=== PATIENT | male | born 1970 | race Caucasian/White ===

== ENCOUNTER 2018-06-27 10:55 | Inpatient (IN) ==
[2018-06-27] MEDS ORDERED: Famotidine 20 MG/2 ML VIAL IVP ONE (11:59)
[2018-06-27] MEDS ORDERED: Acetaminophen IV 1,000 MG/100 ML INFUS..BTL IVPB ONE (12:00)
[2018-06-27] MEDS ORDERED: Pregabalin 75 MG CAPSULE PO ONE (12:00)
[2018-06-27] MEDS ORDERED: Albuterol 2.5 MG/3 ML NEBULIZER IH ONE (12:08)
[2018-06-27] MEDS ORDERED: CeFAZolin Syr 2,000MG/20 ML 2,000 MG/20 ML SYRINGE IVPB ONE (12:08)
[2018-06-27] MEDS: Ringers Solution, Lactated 1,000 ML IVC SCH ×2 (12:30→17:08)
--- NOTE | 2018-06-27 12:31 | Anesthesia Evaluation PreOp ---
Date of Encounter: 06/27/18 Time of Encounter: 12:30 - Past History Planned Operation: Rt THR Cardiac History: Hyperlipidemia Pulmonary History: Smoker OUTSOLE SKIVER History: Seizures Other Medical History: Other (Bipolar) Anesthesia History: No Prior Anesthetic Complications Alcohol Use: none Drug use: none Medications and Allergies Allergy/AdvReac Type Severity Reaction Status Date / Time sulfamethoxazole Allergy See Verified 06/17/18 10:42 [From Bactrim] Comments tramadol Allergy See Verified 06/17/18 10:42 Comments trimethoprim [From Bactrim] Allergy See Verified 06/17/18 10:42 Comments - Meds/Allergy Pre-op Review Medications Reviewed: Yes Allergies Reviewed: Yes Beta Blockers on Current Med List: No Anesthesia Results - Labs Laboratory Tests 06/17/18 06/17/18 11:48 11:48 Hgb 13.0 Hct 39.9 Plt Count 232 Sodium 138 Potassium 4.1 BUN 9 Creatinine 0.82 Anesthesia Exam O2 Sat Height 1.68 m Weight 80.286 kg O2 Sat by Pulse Oximetry 96 Vital Signs Temp Pulse Resp BP Pulse Ox 98.1 F 62 18 108/73 96 06/27/18 11:27 06/27/18 11:27 06/27/18 11:27 06/27/18 11:27 06/27/18 11:27 Height: 5'7 Weight: 177 lbs NPO (# of Hours): MN Pain Scale: 0 - HEENT Pupil (Motor): Pupils equal, EOMI Mallampati: II Teeth: Missing Oral Opening: Greater than 3 - OUTSOLE SKIVER LOC: Oriented OUTSOLE SKIVER Motor: Normal RUE, Normal LUE, Normal RLE, Normal LLE, Normal Face OUTSOLE SKIVER Sensory: Normal: RUE, LUE, RLE, LLE, Face - Cardiac Rhythm: Regular Murmur: None JVD: No Carotid Bruit: No - Pulmonary Breath Sounds: bilateral Clear Respiratory Effort: Symmetrical Anesthesia Assess/Plan ASA Score: 2 Level of consciousness: Cooperative, Oriented, Tranquil Anesthetic Plan: General Reason for No Neuroaxial/Regional Block: Patient refusal Monitoring Plan: Standard Monitors Recovery Plan: PACU (Discussed GA versus SAB, patient wants GA, agrees to proceed)
[2018-06-27] MEDS ORDERED: Dexamethasone 4 MG/ML VIAL IVP ONE (12:33)
[2018-06-27] MEDS ORDERED: Ondansetron 4 MG/2 ML VIAL IVP ONE (12:33)
[2018-06-27] MEDS ORDERED: *HR* OxyCODONE Immed Rel 5 MG TABLET PO PRN (12:33)
--- NOTE | 2018-06-27 12:57 | History & Physical Report ---
Date of Encounter: 06/27/18 Time of Encounter: 12:57 24 Hour HP Update - Instructions Instructions: If the History and Physical is less than 30 days old and was completed prior to A.M. admission and or procedure and has NOT been updated on calendar day of procedure please complete this update prior to performing procedure. - Update Patient reports changes in Medical Condition: No Changes in examination, assessment, or condition: No Changes in Medication: No Preop tests/diagnostics Reviewed: Yes Surgery Remains Indicated: Yes Consent for Planned Operative Procedure(s) Verified: Yes - Pre-Operative Checklist Preoperative Checklist Indicated: No Prophylactic Antibiotic Ordered: Yes Is VTE Prophylaxis Indicated?: Yes
--- NOTE | 2018-06-27 12:58 | Discharge Summary ---
Orders not resulted at time of discharge: Pending orders 06/27/18 12:20 XR hip complete RT [XR] Routine Hemoglobin and Hematocrit [HEME] Routine Date of Encounter: 06/27/18 - Discharge Diagnosis (1) Arthritis of right hip Priority: Primary Status: Chronic (2) Status post total hip replacement, right Priority: Primary Status: Acute - Hospital Course Hospital course: Mr. Blankenship is a 48 year old male - Time Spent with Patient Total time spent providing and/or coordinating discharge services: - Discharge Medications Prescriptions: No Action Triamcinolone Acet 0.1% CRM [Kenalog] 1 appl TP ONCE Hydrocodone/Acetaminophen [Hydrocodone-Acetamin 5-300 mg] 1 each PO Q6HR PRN PRN Reason: Pain Pravastatin Sodium [Pravachol] 20 mg PO DAILY Latanoprost/Pf [Latanoprost 0.005% Eye Drop] 7.5 ml OP DAILY Escitalopram [Lexapro] 10 mg PO DAILY Ketoconazole 2% CRM [Nizoral Cream] 1 appl TP DAILY Gabapentin [Neurontin] 800 mg PO TID Butalbital/Aspirin/Caffeine [Nulsygyanv-DJU-Npewrfvy Cap] 1 each PO PRN PRN PRN Reason: Headache Buspirone HCl [Buspar] 15 mg PO TID Zolpidem [Ambien] 10 mg PO HS Home Medications: Buspirone HCl [Buspar] 15 mg PO TID 06/27/18 [History] Butalbital/Aspirin/Caffeine [Dyltdfpgnr-LXV-Rnnhkkio Cap] 1 each PO PRN PRN 06/27/18 [History] Escitalopram [Lexapro] 10 mg PO DAILY 06/27/18 [History] Gabapentin [Neurontin] 800 mg PO TID 06/27/18 [History] Hydrocodone/Acetaminophen [Hydrocodone-Acetamin 5-300 mg] 1 each PO Q6HR PRN 06/27/18 [History] Ketoconazole 2% CRM [Nizoral Cream] 1 appl TP DAILY 06/27/18 [History] Latanoprost/Pf [Latanoprost 0.005% Eye Drop] 7.5 ml OP DAILY 06/27/18 [History] Pravastatin Sodium [Pravachol] 20 mg PO DAILY 06/27/18 [History] Triamcinolone Acet 0.1% CRM [Kenalog] 1 appl TP ONCE 06/27/18 [History] Zolpidem [Ambien] 10 mg PO HS 06/27/18 [History] Allergies/Adverse Reactions: Allergy/AdvReac Type Severity Reaction Status Date / Time sulfamethoxazole Allergy See Verified 06/17/18 10:42 [From Bactrim] Comments tramadol Allergy See Verified 06/17/18 10:42 Comments trimethoprim [From Bactrim] Allergy See Verified 06/17/18 10:42 Comments Primary care physician: Otf Mendiola MD - Discharge Instructions Follow Up With: Otf Mendiola MD [Primary Care Provider] -
[2018-06-27] MEDS ORDERED: Ethanol\\Acetic Acid\\Na Ace\\Ben 1,000 ML IRRIG.SOLN IR ONE (13:16)
[2018-06-27] MEDS ORDERED: *HR* FentaNYL (PF) 100 MCG/2 ML VIAL ONE (13:29)
[2018-06-27] MEDS ORDERED: *HR* Midazolam HCl 2 MG/2 ML VIAL ONE (13:29)
[2018-06-27] MEDS ORDERED: *HR* Propofol 200 MG/20 ML VIAL IVP ONE (13:29)
[2018-06-27] MEDS ORDERED: *HR* Succinylcholine 200 MG/10 ML VIAL IVP ONE (13:30)
[2018-06-27] MEDS ORDERED: Lidocaine -MPF 2% 2 ML VIAL ONE (13:30)
[2018-06-27] MEDS ORDERED: Ondansetron 4 MG/2 ML VIAL ONE (15:33)
[2018-06-27] MEDS ORDERED: Dexamethasone 4 MG/ML VIAL ONE (15:33)
--- NOTE | 2018-06-27 15:34 | Physician Discharge Referral ---
Home Health/Hosp Referral Info Transfer to: Home Health Attending Provider: Dr. Willy Pan - Diagnosis (1) Status post total hip replacement, right Priority: Primary Status: Acute (2) Arthritis of right hip Priority: Primary Status: Chronic (3) Tobacco dependence Priority: Secondary Status: Chronic - Respiratory Orders Smoking Cessation: Smoking cessation has been advised. For more information, call the [place] Tobacco Quit Line at 1-624-PXZW-NOW. - Dressing/Wound Care Site: right hip Type of Dressing/Treatments w/Frequency: Opsite placed. Keep dressing intact until first follow up appointment. If greater than 50% saturated, notify office, remove dressing and place appropriate dressing back in place. Leave Zipline intact. Opsite dressing is water resistant, not water-proof. OK to shower, but do not get dressing wet. - Diet/Nutrition Diet/Nutrition Orders: Regular - Activity Activity Orders: Up ad william, Ambulate, Chair, Walker Activity: List: Total Hip replacement Precautions Apply cold therapy 3-6x/day for 20 minutes at a time. Encourage ambulation throughout the day and incentive spirometer 10x/hour. Elevate affected extremity as tolerated. Brace: Wear hip abduction pillow when laying/sleeping - Services Needed Following services are medically necessary services: Nursing, Home Health Aide, Physical Therapy, Occupational Therapy - Transfer Medications Home Medications: Aspirin Enteric Coated [Aspirin EC] 325 mg PO BID #20 tablet. 06/27/18 [Rx] Buspirone HCl [Buspar] 10 mg PO BID 06/27/18 [History] Butalbital/Aspirin/Caffeine [Bbbndcxwcm-COC-Dnehaamr Cap] 1 each PO BID PRN 06/27/18 [History] Escitalopram [Lexapro] 10 mg PO DAILY 06/27/18 [History] Gabapentin [Neurontin] 800 mg PO TID 06/27/18 [History] Hydrocodone/Acetaminophen [Hydrocodone-Acetamin 5-300 mg] 1 each PO Q8H PRN 06/27/18 [History] Ketoconazole 2% CRM [Nizoral Cream] 1 appl TP DAILY 06/27/18 [History] Latanoprost/Pf [Latanoprost 0.005% Eye Drop] 1 drop BOTH EYES HS 06/27/18 [History] Nabumetone 750 mg PO Q12H PRN 06/27/18 [History] OxyCODONE Immed Rel [Roxicodone 5 MG] 5 mg PO Q6HR PRN 5 Days #20 tablet 06/27/18 [Rx] Pravastatin Sodium 10 mg PO HS 06/27/18 [History] Triamcinolone Acet 0.1% CRM [Kenalog] 1 appl TP BID 06/27/18 [History] Zolpidem [Ambien] 10 mg PO HS PRN 06/27/18 [History] Allergies/Adverse Reactions: Allergy/AdvReac Type Severity Reaction Status Date / Time sulfamethoxazole Allergy Rash Verified 06/27/18 20:09 [From Bactrim] tramadol Allergy Rash Verified 06/27/18 20:09 trimethoprim [From Bactrim] Allergy Rash Verified 06/27/18 20:09 Certification: Further, I certify that my clinical findings support that this patient is homebound (i.e. absences from home require considerable and taxing effort and are for medical reasons or jew services or infrequently or short duration when for other reasons) because: Homebound Reason: Post-surgery restriction and or conditions limit ability to leave home Attestation: My signature below is to certify that this patient is under my care and that I, or nurse practitioner, or a physician special events assistant working with me, has a [id number] encounter with this patient.
[2018-06-27] MEDS ORDERED: EPHEDrine 50 MG/ML VIAL ONE (15:41)
[2018-06-27] MEDS ORDERED: *HR* Morphine 10 MG/ML VIAL ONE (15:52)
[2018-06-27] MEDS ORDERED: Neostigmine Methylsulfate 3 MG/3 ML SYRINGE ONE ×2 (16:13→16:33)
--- NOTE | 2018-06-27 16:37 | Orthopedic Operative Note ---
Date of procedure: 06/27/18 Pre-op diagnosis: Right hip arthritis Post-op diagnosis: same Procedure: Procedure: Right Total Hip Replacment robotic-assisted Estimated blood loss: 200 cc Hardware: Metal and polyethylene replacement. Tristen DM Cup: 54 cup Femoral size 9 stem Head: 4head with Carmen Procedural Notes: Grade 3 arthritic changes femoral head acetabular socket, procedure performed with robotic assistance. Operative procedure: The patient was brought to the operating room and placed on the operating room table. After general anesthesia was administered the patient was placed in the lateral decubitus position with the operative leg up. All pressure points were padded appropriately and the head was stabilized in the neutral position. The operative extremity was prepped and draped in the sterile surgical fashion p atient received IV antibiotic prior to skin incision. 3 Steinmann pins were placed in the iliac crest 3 cm proximal to the anterior superior iliac spine this was for the robotic-assisted sensor. This was done through a small 2 cm incision. A standard posterior approach is made to the operative hip, the incision was made through the skin and subcutaneous tissue hemostasis was obtained with Bovie cautery. Using careful sharp dissection the fascia was identified and incised exposing the external rotators. The greater trochanter was marked, and length was measured at this time utilizing robotic assistance. The external rotators were released off the greater trochanter and tagged with #2 FiberWire suture. The capsule was T'd open and the hip was brought into internal rotation. Patient noted to have grade 3 arthritic changes femoral head. The femoral neck cut was made at the appropriate level roughly 15 mm proximal to the lesser trochanter aced on preoperative templating. An anterior capsulotomy was performed for the anterior retractor. Soft tissues removed from the acetabulum. Patient noted to have grade 4 arthritic changes acetabulum. The acetabulum reference point was confirmed. The acetabulum was then mapped with robotic assistance. Based on the preoperative plan the acetabulum was reamed in one step with a 54 reamer. The 54 acetabulum was impacted with robotic assistance and 42 degrees of abduction and 18 degrees of anteversion. The hip was brought back in to internal rotation and prepared with the sweat box attendant followed by the canal finder followed by the reaming process to a size 9/10 broaching process in 20 degrees anteversion. It was broached up to the appropriate size 9 Trial reduction revealed leg lengths close to normal. The femoral implant was impacted in place in 20 degrees of anteversion. Trial reduction found the hip to be stable with 4 head and Carmen. The trials were removed and the real implants were impacted in place. The hip was reduced, patient had robotic confirmed leg length of 6 mm longer than the contralateral side. The hip had excellent stability with forward flexion to 90 degrees adduction of 30 degrees and internal rotation of 60 degrees. The hip had no shuck. The hip sat with an antibacterial solution. It was irrigated out with 2 L of pulse irrigation. The Steinmann pins were removed. The deep tissue was irr igated and closed deep with #1 PDS suture superficially with 0 PDS suture and skin was closed with Dermabond and zip tie. The patient was placed in a sterile dressing and abduction pillow. The patient was extubated and transferred to the recovery room in stable condition. Anesthesia: GETA Surgeon: Willy Pan Was there an malt specifications control assistant present: No Estimated blood loss (cc): 200 Condition: stable Disposition: PACU
[2018-06-27] MEDS: *HR* HYDROmorphone (PF) 1 MG/ML SYRINGE IVP PRN ×2 (16:57→17:10)
[2018-06-27 17:22] LABS: Hematocrit 35.2 % (37.5-50.1); Hemoglobin 11.4 g/dL (12.9-16.9)
--- NOTE | 2018-06-27 17:29 | Anesthesia Evaluation Post Op ---
Date of Encounter: 06/27/18 Time of Encounter: 17:28 - Vital Signs Vital Signs: Vital Signs/O2 Sat, Most Current Temp Pulse Resp BP Pulse Ox 99.2 F 68 12 108/71 92 06/27/18 17:15 06/27/18 17:15 06/27/18 17:15 06/27/18 17:15 06/27/18 17:15 - Lungs Lungs: Clear Ascult./Percussion - Airway Airway: Non-obstructed - Cardiovascular Regular Rate - Mental Status Mental Status: Asleep with brisk response to light stimulation - Pain Pain Scale: 4 Pain Scale used: Numeric (1 - 10) - Nausea Vomiting Nausea Vomiting: Responds to treatment with IV Meds (had previously, no emesis. Relieved by 1 dose of zofran.) - Hydration Hydration: NPO, Has not voided - Discharge PostOp Status: Transfer Patient to floor
[2018-06-27] MEDS ORDERED: Ondansetron 4 MG/2 ML VIAL IVP PRN (17:41)
[2018-06-27] MEDS ORDERED: Sennosides 8.6 MG TABLET PO PRN (17:41)
[2018-06-27] MEDS ORDERED: *HR* Promethazine 25 MG/ML VIAL IVP PRN (17:41)
[2018-06-27] MEDS ORDERED: Triamcinolone Acet 0.1% CRM 1 APPL GRAM TP SCH (17:41)
[2018-06-27] MEDS ORDERED: MOM Conc 10 ML UD.LIQ PO PRN (17:41)
[2018-06-27] MEDS ORDERED: Ringers Solution, Lactated 1,000 ML IVC SCH (17:41)
[2018-06-27] MEDS ORDERED: Acetaminophen 325 MG TABLET PO PRN (17:41)
[2018-06-27] MEDS ORDERED: Acetaminophen/Butalbital/CaffeineTABLET PO PRN (17:41)
[2018-06-27] MEDS ORDERED: *HR* OxyCODONE/APAP 5/325 TABLET PO PRN (17:41)
[2018-06-27] MEDS ORDERED: Temazepam 15 MG CAPSULE PO PRN (17:41)
[2018-06-27] MEDS ORDERED: *HR* Enoxaparin 30 MG/0.3 ML SYRINGE SQ SCH (18:00)
[2018-06-27] MEDS ORDERED: Acetaminophen IV 1,000 MG/100 ML INFUS..BTL IVPB PRN (18:06)
[2018-06-27] MEDS: Ascorbic Acid 500 MG TABLET PO SCH (19:04)
[2018-06-27] MEDS: *HR* Enoxaparin 30 MG/0.3 ML SYRINGE SQ SCH (19:04)
[2018-06-27] MEDS: Ketorolac 30 MG/ML VIAL IVP PRN (19:04)
[2018-06-27] MEDS: Gabapentin 400 MG CAPSULE PO SCH (21:51)
[2018-06-27] MEDS: Latanoprost 2.5 ML BOTTLE BOTH EYES SCH (22:02)
[2018-06-28] MEDS: Latanoprost 2.5 ML BOTTLE BOTH EYES SCH (00:04)
[2018-06-28 01:21] LABS: Basophils % 0.1 %; Eosinophils % 0.2 %; Hematocrit 34.7 % (37.5-50.1); Hemoglobin 10.9 g/dL (12.9-16.9); Immature Granulocytes % 0.3 % (0-4); Lymphocytes % 8.1 %; Mean Corpuscular HGB Conc 31.4 g/dL (31.6-35.5); Mean Corpuscular Hemoglobin 29.7 pg (28.0-33.3); Mean Corpuscular Volume 94.6 fL (83.0-100.0); Mean Platelet Volume 10.3 fL (9.4-12.4); Monocytes # 0.7 K/mcL (0.0-1.3); Monocytes % 5.7 %; Neutrophils # 10.6 K/mcL (1.6-8.9); Platelet Count 191 K/mcL (140-400); Red Blood Count 3.67 M/mcL (4.19-5.50); Red Cell Distribution Width 13.5 % (11.5-14.5); Segmented Neutrophils % 85.6 %
[2018-06-28 01:40] LABS: BUN/Creatinine Ratio 10 (6-26); Blood Urea Nitrogen 10 mg/dL (6-20); Calcium 8.8 mg/dL (8.6-10.3); Carbon Dioxide 21 mEq/L (23-29); Chloride 102 mEq/L (98-107); Glucose 175 mg/dL (70-105); Osmolality,Calculated 283 (280-300); Potassium 4.6 mEq/L (3.5-5.1); Sodium 135 mEq/L (136-145); eGFR For Non-African Americans > 60 (> 60)
[2018-06-28] MEDS: Ketorolac 30 MG/ML VIAL IVP PRN (02:48)
[2018-06-28] MEDS: *HR* OxyCODONE Immed Rel 5 MG TABLET PO PRN ×3 (03:47→09:05)
[2018-06-28] MEDS: *HR* Enoxaparin 30 MG/0.3 ML SYRINGE SQ SCH (05:09)
[2018-06-28 07:34] VITALS: BP 122/73
[2018-06-28] MEDS ORDERED: Ketoconazole 2% CRM 15 GM TUBE TP SCH (09:00)
[2018-06-28] MEDS ORDERED: Multivit/Ca/Min/Fe/FA 1 TAB TABLET PO SCH (09:00)
[2018-06-28] MEDS: Gabapentin 400 MG CAPSULE PO SCH (09:01)
[2018-06-28] MEDS: Ascorbic Acid 500 MG TABLET PO SCH (09:02)
== END 2018-06-28 10:36 | disposition home health service (06) | DRG 470 ==
LOC: SAMDAY 10:55 → 3NENU 17:45
PROVIDERS: ADMIT Orthopaedic Surgery; ATTEND Orthopaedic Surgery